=== PATIENT | male | born 1985 | race African-American/Black ===

== ENCOUNTER 2022-05-01 20:16 | Emergency (ER) | payer SELFPAY ==
[~2022-05-01] VITALS: Ht 182.9 cm; Wt 87.0 kg
[2022-05-01] MEDS ORDERED: HYDROCODONE/ACETAMINOPHEN 5/325MG TABLET PO ONE (21:30)
[2022-05-01] MEDS ORDERED: KETOROLAC 30MG/ML VIAL IM ONE (21:30)
[2022-05-01] MEDS ORDERED: HYDR-4001 MT (21:55)
[2022-05-01 22:32] VITALS: BP 151/77
== END 2022-05-01 22:32 | disposition home or self-care (01) ==
LOC: ER 20:16
DX: M25.562 Pain in left knee (principal); Z91.81 History of falling
CPT/HCPCS: 96372; 99283; J1885